=== PATIENT | female | born 1995 | race Caucasian/White ===

== ENCOUNTER 2017-05-16 07:52 | Outpatient (CLI) | payer OTHER ==
[~2017-05-16] VITALS: Ht 157.5 cm; Wt 57.9 kg
[2017-05-16 08:17] VITALS: BP 109/67; PULSE 81; Ht 157.5 cm; Wt 57.9 kg
[2017-05-16] MEDS ORDERED: PRENAT PO (08:20)
[2017-05-16 09:01] LABS: BASOPHILS % 0.1 % (0.0-2.0); EOSINOPHILS # 0.1 10^3/ul (0.0-0.5); EOSINOPHILS % 0.9 % (0.0-7.0); HEMATOCRIT 32.5 % (37.0-47.0); HEMOGLOBIN 10.5 g/dl (12.0-16.0); LYMPHOCYTES # 1.6 10^3/ul (0.8-2.9); LYMPHOCYTES % 20.9 % (15.0-51.0); MEAN CORPUSCULAR HEMOGLOBIN 27.6 pg (29.0-33.0); MEAN CORPUSCULAR HGB CONC 32.3 g/dl (32.0-37.0); MEAN CORPUSCULAR VOLUME 85.3 fl (82.0-101.0); MEAN PLATELET VOLUME 9.8 fl (7.4-10.4); MONOCYTE # 0.6 10^3/ul (0.3-0.9); MONOCYTES % 8.4 % (0.0-11.0); NEUTROPHIL # 5.3 10^3/ul (1.6-7.5); NEUTROPHILS % 68.8 % (39.0-77.0); PLATELET COUNT 179 10^3/UL (140-415); RED BLOOD COUNT 3.81 10^6/ul (4.20-5.40); RED CELL DISTRIBUTION WIDTH 13.9 % (11.5-14.5); WHITE BLOOD COUNT 7.7 10^3/ul (4.8-10.8)
--- NOTE | 2017-05-16 09:03 | RADRPT ---
PROCEDURE: Biophysical profile CLINICAL INDICATION: distress. Back pain. TECHNIQUE: Color and gibson-scale ultrasound images of an intrauterine gestation were obtained. COMPARISON: None FINDINGS: A single live intrauterine gestation is identified in cephalic position with an estimated hear t rate of 146 beats per minute. The placenta is located laterally to the left and has a grade up to . The cervix is obscured by head shadows. No evidence of abruption identified. ADDISON is 12.4 cm. movement 2/2. tone 2/2. breathing movement 2/2. Qualitative AFV 2/2 Total biophysical profile 04/02 IMPRESSION: 04/02 biophysical profile. RPTAT: AA .Hossein Mckeon MD, Date Time Electronically viewed and signed by .Hossein Mckeon MD, on 05/16/2017 09:03 .P/
[2017-05-16 09:15] LABS: ALBUMIN 3.2 g/dl (3.3-4.9); ALBUMIN/GLOBULIN RATIO 1.18; BILIRUBIN,INDIRECT 0.1 mg/dl (0-1.1); BILIRUBIN,TOTAL 0.1 mg/dl (0.2-1.3); CALCIUM 8.8 mg/dl (8.4-10.2); CREATININE 0.36 mg/dl (0.44-1.00); POTASSIUM 3.6 mmol/L (3.5-5.1); TOTAL PROTEIN 5.9 g/dl (6.1-8.1)
[2017-05-16 09:41] LABS: ADD UMIC NO; UR ASCORBIC ACID NEGATIVE (NEGATIVE); UR BILIRUBIN (Dip) NEGATIVE (NEGATIVE); UR BLOOD (Dip) NEGATIVE (NEGATIVE); UR CLARITY CLEAR (CLEAR); UR COLOR YELLOW (YELLOW); UR GLUCOSE (Dip) NEGATIVE (NEGATIVE); UR KETONES (Dip) NEGATIVE (NEGATIVE); UR LEUKOCYTE ESTERASE (Dip) NEGATIVE Leu/ul (NEGATIVE); UR NITRITE (Dip) NEGATIVE (NEGATIVE); UR SPECIFIC GRAVITY (Dip) 1.009 (1.003-1.030); UR TOTAL PROTEIN (Dip) NEGATIVE (NEGATIVE); UR UROBILINOGEN (Dip) NEGATIVE (NEGATIVE)
--- NOTE | 2017-05-16 10:35 | TRIAGE ---
OB Triage Datetime Report Generated by CPN: 05/16/2017 10:34 Datetime: 05/16/2017 10:13 Stage of : OB Triage Datetime: 05/16/2017 10:05 Labor Evaluation Frequency: 0 Monitor Mode: External Resting Tone [place]: Relaxed Heart Rate FHR Baseline Rate: 135 Monitor Mode: External US Variability: Moderate 6-25 bpm Decelerations: None Pain Assessment Pain Scale: 0 Pain Presence: None/Denies Pain Type: N/A Pain Goal: 3 Pain Relief Measures: Comfort Measures Pain Assessment Comments: states no longer has pain Datetime: 05/16/2017 09:03 Labor Evaluation Frequency: X1 Monitor Mode: External Duration (sec)2399: 50 Pattern: Normal: <= 5 Contractions in 10 Minutes Resting Tone [place]: Relaxed Heart Rate FHR Baseline Rate: 135 Monitor Mode: External US Variability: Moderate 6-25 bpm Accelerations: 10X10 Decelerations: None Category: Category I Pain Assessment Pain Scale: 6 Pain Presence: Constant Pain Type: Cramping Pain Location: Abdomen Pain Goal: 3 Pain Relief Measures: Comfort Measures Datetime: 05/16/2017 08:22 Stage of : OB Triage Datetime: 05/16/2017 08:01 Stage of : OB Triage Assessment Type: Triage Maternal Assessment Level of Consciousness: Fully Conscious DTR's/Clonus: DTRs 2+; No Clonus Headache: Denies Blurred Vision: No Respiratory Effort: Unlabored; Regular Rhythm; Equal Expansion Breath Sounds, Left: Clear and Equal Breath Sounds, Right: Clear and Equal Nausea/Vomiting: Denies RUQ Epigastric Pain: Denies Facial Edema: None Temperature Route: Axillary Fall Risk Assessment History of Falling: (0) No Secondary Diagnosis: (0) No Ambulatory Aid: (0) Bedrest/Nurse Assist IV Therapy: (0) No Gait: (0) Normal/Bedrest/Immobile Mental Status: (0) Oriented to Own Ability Fall Score: 0 Fall Risk Score Definition: No Risk: No action required Labor Evaluation Frequency: 0 Monitor Mode: External Resting Tone [place]: Relaxed Heart Rate FHR Baseline Rate: 135 Monitor Mode: External US Variability: Moderate 6-25 bpm Decelerations: None Pain Assessment Pain Scale: 7 Pain Presence: Constant Pain Type: Cramping; Ache Pain Location: Abdomen Pain Goal: 3 Pain Relief Measures: Comfort Measures Datetime: 05/16/2017 08:00 EGA: 34.5 Datetime: 05/16/2017 07:58 Time of Arrival: 05/16/2017 07:45 Arrived By: Ambulatory Arrived From: Home Chief Complaint: C/O CONSTANT ABDOMINAL PAIN THAT STARTED YESTERDAY. DENIES BLEEDING OR LEAKING O F FLUID Movement: Present Contractions: Denies/Absent Rupture of Membranes: Denies Vaginal Bleeding: None Vaginal Discharge: Denies Recent Sexual Intercouse: Denies Abdominal Trauma: Not Applicable Patient Complaints: Back Pain; Other Time Provider Notified: 05/16/2017 08:22 Provider Notified: OSIRIS Initial Plan: MONITOR, U/A, cbc, cmp,bpp
--- NOTE | 2017-05-16 18:34 | QN ---
Documentation Comment iup 34 weeks vss exam wnl a/p iup 34 weeks false labor [facility] CLAUDIA NEWELL MD May 16, 2017 18:34
== END 2017-05-16 10:21 | disposition home or self-care (01) ==
LOC: OBT 07:52 → L-D 07:52 → OBT 10:21
PROVIDERS: ATTEND Obstetrics & Gynecology
DX: O47.03 False labor before 37 completed weeks of gestation, third trimester (principal); Z3A.34 34 weeks gestation of pregnancy
CPT/HCPCS: 76818; 80053; 81003; 85025; G0463

== ENCOUNTER 2017-06-12 14:42 | Inpatient (IN) | payer OTHER ==
[~2017-06-12] VITALS: Ht 152.4 cm; Wt 57.6 kg
[~2017-06-12 14:42] MED LIST: PRENAT PO
[2017-06-12 14:58] VITALS: BP 125/82; PULSE 91; RESP 18; Ht 152.4 cm; Wt 57.6 kg
--- NOTE | 2017-06-12 15:15 | TRIAGE ---
OB Triage Datetime Report Generated by CPN: 06/12/2017 15:14 Datetime: 06/12/2017 15:03 Vaginal Exam Dilatation (cms): 7.0 Effacement (%): 90 Station: -2 Exam By: khemani Membrane Status: Bulging Vaginal Bleeding: None Cervix, Consistency: Soft Cervix, Position: Anterior Presentation 'A': Cephalic Datetime: 06/12/2017 14:56 Heart Rate Monitor Mode: External US Datetime: 06/12/2017 14:54 Labor Evaluation Monitor Mode: External Heart Rate Monitor Mode: External US Datetime: 06/12/2017 14:48 Assessment Type: Triage Maternal Assessment Level of Consciousness: Fully Conscious DTR's/Clonus: DTRs 2+; No Clonus Headache: Denies Blurred Vision: No Respiratory Effort: Unlabored; Regular Rhythm; Equal Expansion Breath Sounds, Left: Clear and Equal Breath Sounds, Right: Clear and Equal Nausea/Vomiting: Denies RUQ Epigastric Pain: Denies Lower Extremities Edema: None Degree: None Upper Extremities Edema: None Degree: None Facial Edema: None Fall Risk Assessment History of Falling: (0) No Secondary Diagnosis: (0) No Ambulatory Aid: (0) Bedrest/Nurse Assist IV Therapy: (0) No Gait: (0) Normal/Bedrest/Immobile Mental Status: (0) Oriented to Own Ability Fall Score: 0 Fall Risk Score Definition: No Risk: No action required Datetime: 06/12/2017 14:46 Time of Arrival: 06/12/2017 14:38 EGA: 38.4 Arrived By: Ambulatory Arrived From: Home Movement: Present Contractions: Irregular Time Contractions Began: 06/12/2017 02:00 Rupture of Membranes: Denies Vaginal Bleeding: None Vaginal Discharge: Present Recent Sexual Intercouse: Denies Abdominal Trauma: Not Applicable Patient Complaints: Contractions; Cramping; Back Pain Time Provider Notified: 06/12/2017 15:10 Provider Notified: AIDAN Initial Plan: efm SVE Datetime: 05/16/2017 08:01 Fall Score: 0 Fall Risk Score Definition: No Risk: No action required Datetime: 05/16/2017 08:00 EGA: 34.5
[2017-06-12] MEDS ORDERED: LACTATED RINGER'S 1,000 ML IV SCH (15:22)
[2017-06-12] MEDS ORDERED: METHYLERGONOVINE 0.2 MG INJ IM PRN (15:30)
[2017-06-12] MEDS ORDERED: IBUPROFEN 600 MG TAB PO PRN (15:30)
[2017-06-12] MEDS ORDERED: OXYTOCIN 30 UNITS/LR 500 ML IV PRN (15:30)
[2017-06-12] MEDS ORDERED: LACTATED RINGER'S 1,000 ML IV PRN (15:30)
[2017-06-12] MEDS ORDERED: MISOPROSTOL 200 MCG TAB PR PRN (15:30)
[2017-06-12] MEDS ORDERED: LIDOCAINE 1% (MPF) 30 ML INJ INJ PRN (15:30)
[2017-06-12] MEDS ORDERED: MINERAL OIL LIGHT 10 ML VIAL TOP PRN (15:30)
[2017-06-12] MEDS ORDERED: OXYTOCIN 30 UNITS/LR 500 ML IV SCH (15:30)
[2017-06-12] MEDS ORDERED: BUTORPHANOL 2 MG INJ IV PRN (15:30)
[2017-06-12] MEDS ORDERED: CARBOPROST 250 MCG INJ IM PRN (15:30)
[2017-06-12 16:02] LABS: BASOPHILS % 0.2 % (0.0-2.0); HEMATOCRIT 39.7 % (37.0-47.0); HEMOGLOBIN 12.5 g/dl (12.0-16.0); LYMPHOCYTES # 1.1 10^3/ul (0.8-2.9); LYMPHOCYTES % 9.1 % (15.0-51.0); MEAN CORPUSCULAR HEMOGLOBIN 26.9 pg (29.0-33.0); MEAN CORPUSCULAR HGB CONC 31.5 g/dl (32.0-37.0); MEAN CORPUSCULAR VOLUME 85.4 fl (82.0-101.0); MEAN PLATELET VOLUME 10.4 fl (7.4-10.4); MONOCYTE # 0.5 10^3/ul (0.3-0.9); MONOCYTES % 4.2 % (0.0-11.0); NEUTROPHIL # 10.3 10^3/ul (1.6-7.5); NEUTROPHILS % 85.6 % (39.0-77.0); PLATELET COUNT 191 10^3/UL (140-415); RED BLOOD COUNT 4.65 10^6/ul (4.20-5.40); RED CELL DISTRIBUTION WIDTH 14.6 % (11.5-14.5)
[2017-06-12 16:20] LABS: INR 0.95; PROTIME 12.7 Sec (12.2-14.2)
[2017-06-12] MEDS: OXYTOCIN 30 UNITS/LR 500 ML IV SCH ×3 (17:02→21:28)
--- NOTE | 2017-06-12 18:48 | LDN ---
Date/Time of Note Date/Time of Note DATE: 06/12/17 TIME: 18:40 Delivery Summary Normal spontaneous vaginal delivery of a baby boy from OA position shoulders delivered without any difficulty rest of the baby's body followed cord clamped after stopped pulsation placenta spontaneous expulsion inspected complete blood loss 250 cc Weeks of Gestation 38 weeks 4 days Placenta Delivered: Spontaneously Meconium: none Episiotomy: No Laceration repair: First-degree perineal laceration, small bilateral pleural urethra laceration repaired with 4-0 chromic Anesthesia type: Local Sponge & Needle done & correct: Yes All needle counts correct: Yes Any foreign bodies felt in the: No Problems: Delivery Information Sex Infant Sex: male Apgars 1 Minute: 9 5 Minute: 9 Suctioning Nose & mouth suctioned at aris: Yes Delee suction performed: No Umbilical Cord Umbilical cord with: 3 Vessels Cord presentations: no nuchal cord Cord Blood was obtained: Yes SLADE BERMUDEZ MD Jun 12, 2017 18:48
[2017-06-12 18:54] VITALS: BP 115/70; PULSE 81; RESP 18
--- NOTE | 2017-06-12 18:57 | HP ---
Date/Time of Note Date/Time of Note DATE: 06/12/17 TIME: 18:49 OB - History Hx of Present Free Text/Dictation 22 years old female admitted to [facility] in active labor pelvic examination on admission cervix 7-8 cm dilated 100% effaced vertex at -1-0 station contraction every 3-5 minutes heart tracing category 1 Chief Complaint: Labor contraction Estimated Due Date: Jun 14, 2017 : 1 Para: 0 Care: Good Care Ultrasounds: Normal mid trimester US Obstetrical Complications: None Medical Complications: None Past Family/Social History * Past Medical, Surgical, Family and Obstetric Histories reviewed from chart. Rubella: immune RPR/VDRL: Negative GBS Status: Negative HBsAG: Negative OB Admission Exam Vital Signs Vital Signs Vital Signs Date Time Temp Pulse Resp B/P Pulse Ox O2 Delivery O2 Flow Rate FiO2 06/12/17 14:58 97.9 91 18 125/82 97 Room Air Physical Exam HEENT: WNL Heart: Rhythm Normal Lungs: Clear, Equal Abdomen: WNL Extremities: Normal Reflexes: Normal Cervical Dilatation: 7cm Effacement: 100% Station: -1 Membranes: Intact Amniotic Fluid: Clear Heart Rate: 130's Accelerations: Accelerations Present Decelerations: No Decelerations Varibility: Moderate Contractions on Admission: < 5 Minutes Apart Intensity: Firm Last 72 hours Lab Results CBC & BMP 06/12/17 15:20 SLADE BERMUDEZ MD Jun 12, 2017 18:56
[2017-06-12 20:45] VITALS: BP 118/75; PULSE 82; RESP 18
[2017-06-12] MEDS ORDERED: DIBUCAINE 1% 30 GM OINT PR PRN (21:00)
[2017-06-12] MEDS ORDERED: BENZOCAINE 20% 56 ML SPRAY TOP PRN (21:00)
[2017-06-12] MEDS ORDERED: ONDANSETRON 4 MG INJ IV PRN (21:00)
[2017-06-12] MEDS ORDERED: WITCH HAZEL/GLYCERIN PAD PR PRN (21:00)
[2017-06-12] MEDS ORDERED: OXYCODONE/ASPIRIN (4.88/325) TAB PO PRN ×2 (21:00)
[2017-06-12] MEDS ORDERED: HYDROCODONE/APAP (5/325) TAB PO PRN ×2 (21:00)
[2017-06-12] MEDS ORDERED: LANOLIN 7 GM TUBE TOP PRN (21:00)
[2017-06-12] MEDS ORDERED: ACETAMINOPHEN 325 MG TAB PO PRN (21:00)
[2017-06-12 21:15] VITALS: BP 119/72; PULSE 84; RESP 18
[2017-06-12] MEDS: SENNA/DOCUSATE NA (8.6MG/50MG) TAB PO SCH (21:28)
[2017-06-13] MEDS: OXYTOCIN 30 UNITS/LR 500 ML IV SCH (00:48)
[2017-06-13] MEDS: IBUPROFEN 600 MG TAB PO SCH ×5 (01:28→23:32)
[2017-06-13 04:00] VITALS: BP 103/59; PULSE 63; RESP 18
[2017-06-13 07:30] VITALS: BP 108/64; PULSE 62; RESP 18
[2017-06-13] MEDS: SENNA/DOCUSATE NA (8.6MG/50MG) TAB PO SCH ×2 (08:00→21:54)
[2017-06-13 11:04] LABS: BASOPHILS % 0.1 % (0.0-2.0); EOSINOPHILS % 0.3 % (0.0-7.0); HEMATOCRIT 35.8 % (37.0-47.0); HEMOGLOBIN 11.3 g/dl (12.0-16.0); LYMPHOCYTES # 1.8 10^3/ul (0.8-2.9); LYMPHOCYTES % 16.1 % (15.0-51.0); MEAN CORPUSCULAR HEMOGLOBIN 27.1 pg (29.0-33.0); MEAN CORPUSCULAR HGB CONC 31.6 g/dl (32.0-37.0); MEAN CORPUSCULAR VOLUME 85.9 fl (82.0-101.0); MEAN PLATELET VOLUME 10.2 fl (7.4-10.4); MONOCYTE # 0.5 10^3/ul (0.3-0.9); MONOCYTES % 4.7 % (0.0-11.0); NEUTROPHIL # 8.8 10^3/ul (1.6-7.5); NEUTROPHILS % 77.8 % (39.0-77.0); PLATELET COUNT 160 10^3/UL (140-415); RED BLOOD COUNT 4.17 10^6/ul (4.20-5.40); RED CELL DISTRIBUTION WIDTH 14.6 % (11.5-14.5); WHITE BLOOD COUNT 11.3 10^3/ul (4.8-10.8)
[2017-06-13 16:00] VITALS: BP 106/60; PULSE 77; RESP 18
--- NOTE | 2017-06-13 17:04 | PN ---
Date/Time of Note Date/Time of Note DATE: 06/13/17 TIME: 17:02 OB Subjective Subjective Subjective June 13, 2017 Post day 1 Patient is doing well, Ambulatory She is afebrile Abdomen is soft , Fundus is firm Moderate amount of lochia Breasts are soft, Nipples are intact No calf tenderness. Perineum is healing well. Laboratory Tests Test 06/13/17 10:23 White Blood Count 11.310^3/ul Red Blood Count 4.1710^6/ul Hemoglobin 11.3g/dl Hematocrit 35.8% Mean Corpuscular Volume 85.9fl Mean Corpuscular Hemoglobin 27.1pg Mean Corpuscular Hemoglobin Concent 31.6g/dl Red Cell Distribution Width 14.6% Platelet Count 43271^3/UL Mean Platelet Volume 10.2fl Neutrophils % 77.8% Lymphocytes % 16.1% Monocytes % 4.7% Eosinophils % 0.3% Basophils % 0.1% Nucleated Red Blood Cells % 0.0/100WBC Neutrophils # 8.810^3/ul Lymphocytes # 1.810^3/ul Monocytes # 0.510^3/ul Eosinophils # 0.010^3/ul Basophils # 0.010^3/ul Nucleated Red Blood Cells # 0.010^3/ul Current Medications Medications (Trade) Dose Ordered Sig/[place] Route PRN Reason Start Time Stop Time Status Last Admin Dose Admin Lactated Ringer's (Lr) 1,000 ml @ 125 mls/hr Q8H IV 06/12/17 15:22 06/12/17 21:00 DC 06/12/17 15:25 Butorphanol Tartrate (Stadol) 2 mg Q2H PRN IV PAIN 06/12/17 15:30 06/12/17 21:00 DC Lidocaine 30 ml 30 ml ONCE PRN INJ EPISIOTOMY/TEARING 06/12/17 15:30 06/12/17 21:00 DC 06/12/17 17:02 Oxytocin/Lactated Ringer's 500 ml @ 125 mls/hr ONCE -MAY REPEAT X1 IV 06/12/17 15:30 06/12/17 21:00 DC 06/12/17 17:30 Oxytocin/Lactated Ringer's 500 ml @ 125 mls/hr ONCE IV 06/12/17 15:30 06/12/17 21:00 DC Ibuprofen 600 mg 600 mg ONCE PRN PO Mild Pain (Pain Score 1-3) 06/12/17 15:30 06/12/17 21:00 DC 06/12/17 17:26 Lactated Ringer's 1,000 ml @ 2,000 mls/hr Q30M PRN IV PRE-EPIDURAL BOLUS 06/12/17 15:30 06/12/17 21:00 DC Oxytocin/Lactated Ringer's 500 ml @ 0 mls/hr ONCE PRN IV For Hemorrhage Management 06/12/17 15:30 06/12/17 21:00 DC Methylergonovine Maleate (Methergine) 0.2 mg ONCE PRN IM VAGINAL BLEEDING 06/12/17 15:30 06/12/17 21:00 DC Carboprost Tromethamine (Hemabate) 250 mcg ONCE PRN IM VAGINAL BLEEDING 06/12/17 15:30 06/12/17 21:00 DC Misoprostol (Cytotec) 1,000 mcg ONCE PRN ME VAGINAL BLEEDING 06/12/17 15:30 06/12/17 21:00 DC Mineral Oil 30 ml 30 ml ONCE PRN TOP FOR DELIVERY 06/12/17 15:30 06/12/17 21:00 DC 06/12/17 17:02 Oxytocin/Lactated Ringer's 500 ml @ 125 mls/hr Q4H IV 06/12/17 20:48 06/13/17 04:47 DC 06/12/17 21:28 Ibuprofen (Motrin) 600 mg Q6 PO 06/13/17 00:00 06/13/17 11:56 Acetaminophen (Tylenol Tab) 650 mg Q4H PRN PO PAIN LEVEL 1-5 06/12/17 21:00 Acetaminophen/ Hydrocodone Bitart (Canvas (5/325)) 1 tab Q4H PRN PO PAIN LEVEL 1-5 06/12/17 21:00 Acetaminophen/ Hydrocodone Bitart (Canvas (5/325)) 2 tab Q4H PRN PO PAIN LEVEL 6-10 06/12/17 21:00 Oxycodone/Aspirin (Percodan) 1 tab Q3H PRN PO PAIN LEVEL 1-5 06/12/17 21:00 06/13/17 08:00 Oxycodone/Aspirin (Percodan) 2 tab Q3H PRN PO PAIN LEVEL 6-10 06/12/17 21:00 Ondansetron HCl (Zofran Inj) 4 mg Q6H PRN IV NAUSEA AND/OR VOMITING 06/12/17 21:00 Senna/Docusate Sodium (Senokot-S) 1 tab BID PO 06/12/17 21:00 06/13/17 08:00 Witch Ernestina/ Glycerin (Tucks Pads) 1 pad BEDSIDE MEDICATION PRN ME HEMORRHOID/EPISIOTMY PAIN 06/12/17 21:00 06/12/17 21:28 Benzocaine (Dermoplast [place]) 1 spray BEDSIDE MEDICATION PRN TOP HEMORRHOID/EPISIOTMY PAIN 06/12/17 21:00 06/12/17 21:29 Dibucaine (Nupercainal) 1 applic BEDSIDE MEDICATION PRN ME HEMORRHOID/EPISIOTMY PAIN 06/12/17 21:00 Lanolin (Bji-C-Wxqdam) 1 applic BEDSIDE MEDICATION PRN TOP BEDSIDE FOR DANIEL TO NIPPLES 06/12/17 21:00 06/12/17 21:29 Measles/Mumps/ Rubella Vaccine Live (Mmr Ii Vaccine) 0.5 ml ONCE ONCE SC* 06/14/17 09:00 06/14/17 09:01 Breast feeding the new born. LOTTIE LUGO MD Jun 13, 2017 17:04
[2017-06-13 19:30] VITALS: BP 116/75; PULSE 69; RESP 17
[2017-06-14 04:00] VITALS: BP 108/77; PULSE 64; RESP 18
[2017-06-14] MEDS: IBUPROFEN 600 MG TAB PO SCH ×2 (05:21→12:13)
[2017-06-14 08:30] VITALS: BP 107/71; PULSE 62; RESP 16
[2017-06-14] MEDS ORDERED: MEASLES,MUMPS,RUBELLA VACCINE INJ SC* ONE (09:00)
[2017-06-14] MEDS: SENNA/DOCUSATE NA (8.6MG/50MG) TAB PO SCH (09:15)
--- NOTE | 2017-06-14 09:34 | PD.PPDC ---
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
--- NOTE | 2017-06-14 09:37 | DS ---
Date/Time of Note Date/Time of Note DATE: 06/14/17 TIME: 09:34 Discharge Summary Admission/Discharge Info Admit Date/Time Jun 12, 2017 at 15:05 Discharge Date/Time June 14, 2017 at 9 30 Discharge Diagnosis Post normal vaginal delivery day2 Patient Condition: Good Procedures Normal vaginal delivery Hx of Present Illness Term in labor Hospital Course Satisfactory uneventful Home Meds Discontinued Reported Medications Multivit/Min/Fol Ac/Iron/Pren* ( S*) 1 Tab Tab, 1 TAB PO DAILY, TAB 05/16/17 Follow-up Plan instruction given recommended to make appointment with [facility] [place] for check Primary Care Provider [facility] Time spent on discharge: < 30 minutes Pending Labs Laboratory Tests Test 06/13/17 10:23 06/14/17 07:08 White Blood Count 11.310^3/ul (4.8-10.8) Red Blood Count 4.1710^6/ul (4.20-5.40) Hemoglobin 11.3g/dl (12.0-16.0) Hematocrit 35.8% (37.0-47.0) Mean Corpuscular Volume 85.9fl (82.0-101.0) Mean Corpuscular Hemoglobin 27.1pg (29.0-33.0) Mean Corpuscular Hemoglobin Concent 31.6g/dl (32.0-37.0) Red Cell Distribution Width 14.6% (11.5-14.5) Platelet Count 84248^3/UL (140-415) Mean Platelet Volume 10.2fl (7.4-10.4) Neutrophils % 77.8% (39.0-77.0) Lymphocytes % 16.1% (15.0-51.0) Monocytes % 4.7% (0.0-11.0) Eosinophils % 0.3% (0.0-7.0) Basophils % 0.1% (0.0-2.0) Nucleated Red Blood Cells % 0.0/100WBC (0.0-0.0) Neutrophils # 8.810^3/ul (1.6-7.5) Lymphocytes # 1.810^3/ul (0.8-2.9) Monocytes # 0.510^3/ul (0.3-0.9) Eosinophils # 0.010^3/ul (0.0-0.5) Basophils # 0.010^3/ul (0.0-0.1) Nucleated Red Blood Cells # 0.010^3/ul (0.0-0.0) Lab Scanned Report REFERENCE [id number] SLADE BERMUDEZ MD Jun 14, 2017 09:37
== END 2017-06-14 14:57 | disposition home or self-care (01) | DRG 775 ==
LOC: L-D 14:42 → OBT 14:42 → L-D 15:05 → PP1 20:49
PROVIDERS: ADMIT Obstetrics & Gynecology; ATTEND Obstetrics & Gynecology
PROC: 10E0XZZ Delivery of Products of Conception, External Approach (ICD-10-PCS; principal; 2017-06-12)
PROC: 0HQ9XZZ Repair Perineum Skin, External Approach (ICD-10-PCS; 2017-06-12)
DX: O70.0 First degree perineal laceration during delivery (principal); Z37.0 Single live birth; Z3A.38 38 weeks gestation of pregnancy
CPT/HCPCS: 85025; 85610; 85730; 86592; 86900; 86901; 87340; G0463; J2590; J7120

== ENCOUNTER 2017-08-08 00:11 | Inpatient (IN) | payer OTHER ==
[2017-08-08] VITALS (8 sets, daily range): BP systolic 91–109; BP diastolic 48–61; PULSE 59–89; RESP 16–18; Ht 157.5 cm; Wt 48.1 kg
[~2017-08-08] VITALS: Ht 157.5 cm; Wt 48.1 kg
[2017-08-08] MEDS ORDERED: SOD CHLORIDE 0.9% 1,000 ML IV SCH (02:30)
[2017-08-08] MEDS ORDERED: NACL 0.9% 3 ML SYG IV SCH (04:00)
[2017-08-08] MEDS ORDERED: BISACODYL (EC) 5 MG TAB PO PRN (04:00)
[2017-08-08] MEDS ORDERED: DOCUSATE SODIUM 100 MG CAP PO PRN (04:00)
[2017-08-08] MEDS ORDERED: ONDANSETRON 4 MG INJ IV PRN (04:00)
[2017-08-08] MEDS: PIPER-TAZO 3.375 GM IV (PMX) 50 ML IVPB SCH ×5 (04:37→23:10)
[2017-08-08] MEDS: SOD CHLORIDE 0.9% 1,000 ML IV SCH ×2 (04:37→14:23)
--- NOTE | 2017-08-08 06:13 | HP ---
Date/Time of Note Date/Time of Note DATE: 08/08/17 TIME: 05:26 Assessment/Plan VTE Prophylaxis VTE Prophylaxis Intervention: SCD's Lines/Catheters IV [facility]ter [facility]from [facility] Saline Lock Urinary Cath still in place: No Assessment/Plan Chief Complaint/Hosp Course This is a 22 year female who was admitted recently to the telemetry floor however she will be downgraded to MedSurg: #1 Choledocholithiasis: Imaging and lab work from the transferring facility showed: Ultrasound showed distended gallbladder 10.3 mm with gallbladder sludge. Her T bili was elevated at 3.2 along with transaminitis. At the current time will order a repeat CBC and CMP. Will keep the patient n.p.o. I did discuss the case with the surgeon Dr. Fish as well as GI Dr. Wolf. At the current time we will proceed with ERCP based on the ultrasound findings. After that she likely will undergo cholecystectomy. The current time we will keep her on prophylactic antibiotics. Monitor for any fevers. As she does appear clinically stable at this time I will downgrade her to MedSurg. Morphine for pain control. Zofran for nausea #2 congenital heart murmur: Patient had congenital heart murmur surgery repair. But the current time I do not hear any overt murmurs. Currently stable. Continue to monitor. #3 DVT GI prophylaxis: SCDs, no GI prophylaxis indicated Patient was educated on the risks and benefits of the surgical procedures. Patient understands the risks and benefits and she is agreeable to proceed forward with the procedures. Further treatment strategy will be implemented as per the clinical course Problems: HPI/ROS Admit Date/Time Admit Date/Time Aug 08, 2017 at 01:00 Hx of Present Illness cc; Abdominal pain This is a 22 year old female who presented to [facility] with abdominal pain x 4 days. Patient described it is a pain, and was not able to give it an exact description. 10/10 in intensity. Reporting nausea and vomitting. Denies fevers. States she was diagnosed with gallstones in the past. She recently delivered via vaginal delivery. She is currently breast-feeding. Allergies: NKDA Medications: None ROS Const: As per HPI Eyes : No pain discharge or redness or change in visual acuity ENT: No pain, sore throat, congestion, congestion, dysphagia or discharge Respiratory: No shortness of breath, cough, sputum, wheezing, or pleuritic pain Cardiovascular: No chest pain, palpitation, PND, or edema GI : As per HPI Genitourinary: No dysuria, hematuria, flank pain , discharge or CVA tenderness Musculoskeletal: No joint pain, back pain, neck pain, restricted range of motion in neck or joints Skin: No rash, bruising or hives Neuro: No headache, dizziness, syncope, seizure, focal weakness Endocrine: No polyuria, polydipsia, temperature intolerance Psych: No hallucination, depression, anxiety or suicidal ideation PMH/Family/Social Past Medical History Congenital heart murmur status post surgery Past Surgical History Congenital heart murmur surgery repair Family History Significant Family History: no pertinent family hx Social History Alcohol Use: none Smoking Status: Never smoker Drug Use: none Exam/Review of Systems Vital Signs Vitals Vital Signs Date Time Temp Pulse Resp B/P Pulse Ox O2 Delivery O2 Flow Rate FiO2 08/08/17 04:00 63 Exam Exam General: She is currently lying comfortably in bed in no acute distress HEENT: Atraumatic, normocephalic. The pupils are equal, round and reactive. Extraocular motor are intact Neck: Supple with full range of motion. No rigidity or meningismus Chest: Nontender Lungs: Clear to auscultation bilaterally no crackles rales or wheezing Heart: Normal S1-S2, Regular rhythm and rate. No murmur, S3, or S4 Abdomen: Soft, currently she is nontender to palpation at the right upper quadrant, normal bowel sounds Extremities: Normal to inspection, no edema no cyanosis Neurologic: Normal mental status, speech normal, cranial nerves II through XII are intact, motor and sensory are intact, no focal weakness Additional Comments Pertinent laboratory findings from transferring facility please see full report in the medical record: Ultrasound of the gallbladder: Showed distended common bile at 10.3 mm with gallbladder sludge. Alk phos 209 AST and ALT: 126 and 184 respectively Medications Medications Current Medications Sodium Chloride (NS) 1,000 ml @ 100 mls/hr Q10H IV Last administered on t 04:37; Admin Dose 100 MLS/HR; Start 08/08/17 at 03:51 Ondansetron HCl (Zofran Inj) 4 mg Q6H PRN IV NAUSEA AND/OR VOMITING; Start at 04:00 Acetaminophen (Tylenol Tab) 650 mg Q6H PRN PO PAIN LEVEL 1-3 OR FEVER; Start 08/08/17 at 04:00 Morphine Sulfate (morphine) 2 mg Q4H PRN IV PAIN LEVEL 7-10; Start 08/08/17 at 04:00 Docusate Sodium (Colace) 100 mg Q12H PRN PO CONSTIPATION; Start 08/08/17 at 04 :00 Bisacodyl 5 mg 5 mg DAILY PRN PO CONSTIPATION; Start 08/08/17 at 04:00 Piperacillin Sod/ Tazobactam Sod (Zosyn 3.375gm/ 50 ml (Pmx)) 50 ml @ 100 mls/ hr Q6 IVPB Last administered on 08/08/17t 04:37; Admin Dose 100 MLS/HR; Start 08/08/17 at 04:00 ABIGAIL GO Aug 08, 2017 06:13
[2017-08-08 06:50] LABS: BASOPHILS % 0.4 % (0.0-2.0); EOSINOPHILS # 0.3 10^3/ul (0.0-0.5); EOSINOPHILS % 3.8 % (0.0-7.0); HEMATOCRIT 34.8 % (37.0-47.0); HEMOGLOBIN 11.4 g/dl (12.0-16.0); MEAN CORPUSCULAR HEMOGLOBIN 26.7 pg (29.0-33.0); MEAN CORPUSCULAR HGB CONC 32.8 g/dl (32.0-37.0); MEAN CORPUSCULAR VOLUME 81.5 fl (82.0-101.0); MEAN PLATELET VOLUME 9.6 fl (7.4-10.4); MONOCYTE # 0.7 10^3/ul (0.3-0.9); NEUTROPHIL # 3.3 10^3/ul (1.6-7.5); NEUTROPHILS % 45.7 % (39.0-77.0); PLATELET COUNT 209 10^3/UL (140-415); RED BLOOD COUNT 4.27 10^6/ul (4.20-5.40); RED CELL DISTRIBUTION WIDTH 13.1 % (11.5-14.5); WHITE BLOOD COUNT 7.2 10^3/ul (4.8-10.8)
--- NOTE | 2017-08-08 07:22 | CONS ---
Date/Time of Note Date/Time of Note DATE: 08/08/17 TIME: 07:15 Assessment/Plan Assessment/Plan Chief Complaint/Hosp Course abdominal pain Problems: (1) Choledocholithiasis Status: Acute Comment: Requires ERCP by GI for CBD stone extraction If after ERCP pt with no pancreatitis, will carry out lap choly prior to discharge Risks and benefits, including bleeding, infection, CBD injury, damage to surrounding structures explained. All questions answered with RN interpreting and present. Pt agreed to proceed with surgery. Consultation Date/Type/Reason Admit Date/Time Aug 08, 2017 at 01:00 Date of Consultation: Aug 08, 2017 Type of Consultation: General surgery Reason for Consultation gallstones Referring Provider: ABIGAIL GO Hx of Present Illness 22 yo female presents with two days of worsening RUQ and epigastric pain. Pt was diagnosed with gallstones when she was . Since having delivered she has noticed the pain getting worse. Workup in the ER at [facility] reveals CBD of 10.3 mm and TBili of 3.2 concerning for CBD stone. Pt transferred to [facility] for tx. Constitutional: poor po Eyes: no complaints ENT: no complaints Respiratory: no complaints Cardiovascular: no complaints Gastrointestinal: decreased appetite, nausea, pain, passing stool, vomiting, No blood, No constipation, No diarrhea, No flatus, No no complaints, No other Genitourinary: no complaints Musculoskeletal: no complaints Skin: no complaints Neurologic: no complaints Endocrine: no complaints Lymphatic: no complaints Psychological: nl mood/affect, no complaints Immunologic: no complaints Past Medical History Medical History: no pertinent history Past Surgical History Past Surgical Hx: no surgical history Family History Significant Family History: no pertinent family hx Social History Alcohol Use: none Smoking Status: Never smoker Drug Use: none Exam/Review of Systems Vital Signs Vitals Vital Signs Date Time Temp Pulse Resp B/P Pulse Ox O2 Delivery O2 Flow Rate FiO2 08/08/17 04:00 63 Exam Constitutional: alert, oriented, well developed Psych: nl mood/affect, no complaints Head: atraumatic, normocephalic Eyes: EOMI, nl conjunctiva ENMT: nl external ears & nose, nl lips & teeth, nl nasal mucosa & septum Neck: non-tender, supple Respiratory: clear to auscultation, normal air movement Cardiovascular: nl pulses, regular rate and rhythm Gastrointestinal: nl liver, spleen, soft, tender, No distended, No firm, No hepatomegaly, No mass, No rebound or guarding, No splenomegaly, No surgical scars Musculoskeletal: nl extremities to inspection Extremities: normal pulses Neurological: MEAT BONER AND SLICER II-XII intact, nl mental status, nl speech, nl strength Skin: nl turgor, rash or lesions Lymph: nl lymph nodes Results Result Diagram: 08/08/17 0606 Results 24 hrs Laboratory Tests Test 08/08/17 06:06 White Blood Count 7.2 # Red Blood Count 4.27 Hemoglobin 11.4 L Hematocrit 34.8 L Mean Corpuscular Volume 81.5 L Mean Corpuscular Hemoglobin 26.7 L Mean Corpuscular Hemoglobin Concent 32.8 Red Cell Distribution Width 13.1 Platelet Count 209 # Mean Platelet Volume 9.6 Neutrophils % 45.7 Lymphocytes % 41.0 Monocytes % 9.0 Eosinophils % 3.8 Basophils % 0.4 Nucleated Red Blood Cells % 0.0 Neutrophils # 3.3 Lymphocytes # 3.0 H Monocytes # 0.7 Eosinophils # 0.3 Basophils # 0.0 Nucleated Red Blood Cells # 0.0 Imaging Free Text/Dictation US: multiple gallstones; CBD 10.3 mm Medications Medications Current Medications Sodium Chloride (NS) 1,000 ml @ 100 mls/hr Q10H IV Last administered on 04:37; Admin Dose 100 MLS/HR; Start 08/08/17 at 03:51 Ondansetron HCl (Zofran Inj) 4 mg Q6H PRN IV NAUSEA AND/OR VOMITING; Start at 04:00 Acetaminophen (Tylenol Tab) 650 mg Q6H PRN PO PAIN LEVEL 1-3 OR FEVER; Start 08/08/17 at 04:00 Morphine Sulfate (morphine) 2 mg Q4H PRN IV PAIN LEVEL 7-10; Start 08/08/17 at 04:00 Docusate Sodium (Colace) 100 mg Q12H PRN PO CONSTIPATION; Start 08/08/17 at 04 :00 Bisacodyl 5 mg 5 mg DAILY PRN PO CONSTIPATION; Start 08/08/17 at 04:00 Piperacillin Sod/ Tazobactam Sod (Zosyn 3.375gm/ 50 ml (Pmx)) 50 ml @ 100 mls/ hr Q6 IVPB Last administered on 08/08/17 04:37; Admin Dose 100 MLS/HR; Start 08/08/17 at 04:00 CRIS HO Aug 08, 2017 07:22
[2017-08-08 08:04] LABS: INR 1.04; PARTIAL THROMBOPLASTIN TIME 37.6 Sec (25.0-35.0); PROTIME 13.7 Sec (11.9-14.9); PT RATIO 1.1
[2017-08-08 08:11] LABS: CHOL/HDL RATIO 2.2 RATIO
[2017-08-08 08:21] LABS: ALBUMIN/GLOBULIN RATIO 1.53; CALCIUM 8.9 mg/dl (8.4-10.2); CREATININE 0.62 mg/dl (0.44-1.00); MAGNESIUM 1.9 mg/dl (1.7-2.5); POTASSIUM 4.1 mmol/L (3.5-5.1); TOTAL PROTEIN 6.6 g/dl (6.1-8.1)
[2017-08-08 08:33] LABS: BILIRUBIN,INDIRECT 1.1 mg/dl (0-1.1); BILIRUBIN,TOTAL 1.1 mg/dl (0.2-1.3)
[2017-08-08 09:47] LABS: THYROID STIMULATING HORMONE 2.85 MIU/L (0.465-4.680)
[2017-08-08] MEDS ORDERED: DEXTROSE 50% 50 ML SYRINGE IV PRN ×2 (13:00)
[2017-08-08] MEDS ORDERED: GLUCOSE GEL 15 GRAM TUBE BUCCAL PRN (13:00)
[2017-08-08] MEDS ORDERED: GLUCOSE GEL 15 GRAM TUBE PO PRN ×2 (13:00)
[2017-08-08] MEDS ORDERED: INSULIN GLARGINE [LANtus] 3 ML PEN SC SCH (13:00)
[2017-08-08] MEDS ORDERED: GLUCAGON 1 MG INJ IM PRN (13:00)
--- NOTE | 2017-08-08 17:36 | PN ---
Date/Time of Note Date/Time of Note DATE: 08/08/17 TIME: 17:34 Assessment/Plan VTE Prophylaxis VTE Prophylaxis Intervention: LMWH Lines/Catheters IV Catheter Type (from Nrsg): Peripheral IV Urinary Cath still in place: No Assessment/Plan Chief Complaint/Hosp Course 22 yo female with cholecystitis - Plan for ERCP tomorrow - Contineu abx until resovled - NPO at midnight - Pain control, IVF Problems: Subjective 24 Hr Interval Summary Free Text/Dictation Patient feeling well Initial A1C showed 9% so dose lantus, however another one showed 5.6%, sugar slightly low at 76 Patient has no abdominal pain when seen Plan for ERCP tomorrow Exam/Review of Systems Vital Signs Vitals Vital Signs Date Time Temp Pulse Resp B/P Pulse Ox O2 Delivery O2 Flow Rate FiO2 08/08/17 14:00 98.5 72 18 96/51 98 Intake and Output 08/07/17 08/07/17 08/08/17 15:00 23:00 07:00 Intake Total 50 ml Balance 50 ml Exam Constitutional: alert, oriented, well developed Psych: nl mood/affect, no complaints Head: atraumatic, normocephalic Eyes: EOMI, PERRL, nl conjunctiva, nl lids, nl sclera ENMT: nl external ears & nose, nl lips & teeth, nl nasal mucosa & septum Neck: non-tender, supple Respiratory: clear to auscultation, normal air movement Cardiovascular: nl pulses, regular rate and rhythm Gastrointestinal: nl liver, spleen, non-tender, soft Musculoskeletal: nl extremities to inspection, nl gait and stance Extremities: normal pulses Neurological: JOINTER MACHINE II-XII intact, nl mental status, nl speech, nl strength Skin: nl turgor, No rash or lesions Lymph: nl lymph nodes Results Result Diagram: 08/08/17 0606 08/08/17 0606 Results 24 hrs Laboratory Tests Test 08/08/17 06:06 08/08/17 13:30 08/08/17 14:57 White Blood Count 7.2 # Red Blood Count 4.27 Hemoglobin 11.4 L Hematocrit 34.8 L Mean Corpuscular Volume 81.5 L Mean Corpuscular Hemoglobin 26.7 L Mean Corpuscular Hemoglobin Concent 32.8 Red Cell Distribution Width 13.1 Platelet Count 209 # Mean Platelet Volume 9.6 Neutrophils % 45.7 Lymphocytes % 41.0 Monocytes % 9.0 Eosinophils % 3.8 Basophils % 0.4 Nucleated Red Blood Cells % 0.0 Neutrophils # 3.3 Lymphocytes # 3.0 H Monocytes # 0.7 Eosinophils # 0.3 Basophils # 0.0 Nucleated Red Blood Cells # 0.0 Prothrombin Time 13.7 Prothrombin Time Ratio 1.1 INR International Normalized Ratio 1.04 Activated Partial Thromboplast Time 37.6 H Sodium Level 142 Potassium Level 4.1 Chloride Level 109 Carbon Dioxide Level 21 Anion Gap 16 Blood Urea Nitrogen 13 Creatinine 0.62 Glucose Level 72 Hemoglobin A1c 9.6 H 5.6 Calcium Level 8.9 Magnesium Level 1.9 Total Bilirubin 1.1 Direct Bilirubin 0.00 Indirect Bilirubin 1.1 Aspartate Amino Transf (AST/SGOT) 95 H Alanine Aminotransferase (ALT/SGPT) 170 H Alkaline Phosphatase 188 H Total Protein 6.6 Albumin 4.0 Globulin 2.60 Albumin/Globulin Ratio 1.53 Triglycerides Level 69 Cholesterol Level 133 LDL Cholesterol, Calculated 61 HDL Cholesterol 58 Cholesterol/HDL Ratio 2.2 Thyroid Stimulating Hormone (TSH) 2.850 Serum HCG, Qualitative NEGATIVE Bedside Glucose 73 Medications Medications Current Medications Ondansetron HCl (Zofran Inj) 4 mg Q6H PRN IV NAUSEA AND/OR VOMITING; Start at 04:00 Acetaminophen (Tylenol Tab) 650 mg Q6H PRN PO PAIN LEVEL 1-3 OR FEVER; Start 08/08/17 at 04:00 Morphine Sulfate 2 mg 2 mg Q4H PRN IV PAIN LEVEL 7-10; Start 08/08/17 at 04:00 Piperacillin Sod/ Tazobactam Sod (Zosyn 3.375gm/ 50 ml (Pmx)) 50 ml @ 100 mls/ hr Q6 IVPB Last administered on 08/08/17t 17:24; Admin Dose 100 MLS/HR; Start 08/08/17 at 04:00 Dextrose (D50w Syringe) 25 ml Q15M PRN IV DECREASED GLUCOSE; Start 08/08/17 at 13:00 MEAGAN JORDAN MD Aug 08, 2017 17:36
[2017-08-08] MEDS ORDERED: INSULIN ASPART [NOVOLOG] 3 ML PEN SC SCH ×2 (17:55)
[2017-08-08] MEDS: ACETAMINOPHEN 325 MG TAB PO PRN (19:18)
[2017-08-08] MEDS: morphine 2 MG INJ IV PRN (20:59)
[2017-08-09] MEDS ORDERED: ACCU-CHEK XX SCH (02:00)
[2017-08-09] MEDS: PIPER-TAZO 3.375 GM IV (PMX) 50 ML IVPB SCH ×4 (05:23→23:12)
[2017-08-09 06:51] LABS: INR 1.03; PROTIME 13.6 Sec (11.9-14.9); PT RATIO 1.1
[2017-08-09 06:52] LABS: PARTIAL THROMBOPLASTIN TIME 35.2 Sec (25.0-35.0)
[2017-08-09 07:28] VITALS: BP 97/49; RESP 18
[2017-08-09 09:22] LABS: ALBUMIN 3.4 g/dl (3.3-4.9); ALBUMIN/GLOBULIN RATIO 1.47; BILIRUBIN,INDIRECT 1.4 mg/dl (0-1.1); BILIRUBIN,TOTAL 1.4 mg/dl (0.2-1.3); CALCIUM 8.4 mg/dl (8.4-10.2); CREATININE 0.72 mg/dl (0.44-1.00); POTASSIUM 4.2 mmol/L (3.5-5.1); TOTAL PROTEIN 5.7 g/dl (6.1-8.1)
[2017-08-09 14:03] VITALS: BP 98/54; RESP 18
--- NOTE | 2017-08-09 14:50 | PN ---
Date/Time of Note Date/Time of Note DATE: 08/09/17 TIME: 14:49 Assessment/Plan VTE Prophylaxis VTE Prophylaxis Intervention: LMWH Lines/Catheters IV Catheter Type (from Nrs): Peripheral IV Urinary Cath still in place: No Assessment/Plan Chief Complaint/Hosp Course 22 yo female with cholecystitis - Plan for ERCP today - Continue abx until resolved - NPO for now, can eat following procedure - Pain control, IVF Problems: Subjective 24 Hr Interval Summary Free Text/Dictation Patient comfortable, stable Pending ERCP today Exam/Review of Systems Vital Signs Vitals Vital Signs Date Time Temp Pulse Resp B/P Pulse Ox O2 Delivery O2 Flow Rate FiO2 08/09/17 14:03 98.6 57 18 98/54 100 Intake and Output 08/08/17 08/08/17 08/09/17 15:00 23:00 07:00 Intake Total 100 ml 50 ml 340 ml Balance 100 ml 50 ml 340 ml Exam Constitutional: alert, oriented, well developed Psych: nl mood/affect, no complaints Head: atraumatic, normocephalic Eyes: EOMI, PERRL, nl conjunctiva, nl lids, nl sclera ENMT: nl external ears & nose, nl lips & teeth, nl nasal mucosa & septum Neck: non-tender, supple Respiratory: clear to auscultation, normal air movement Cardiovascular: nl pulses, regular rate and rhythm Gastrointestinal: nl liver, spleen, non-tender, soft Musculoskeletal: nl extremities to inspection, nl gait and stance Extremities: normal pulses Neurological: WAREHOUSE DISTRIBUTION SPECIALIST II-XII intact, nl mental status, nl speech, nl strength Skin: nl turgor, No rash or lesions Lymph: nl lymph nodes Results Result Diagram: 08/08/17 0606 08/09/17 0548 Results 24 hrs Laboratory Tests Test 08/08/17 14:57 08/09/17 05:46 08/09/17 05:47 08/09/17 05:48 Hemoglobin A1c 5.6 Prothrombin Time 13.6 Prothrombin Time Ratio 1.1 INR International Normalized Ratio 1.03 Activated Partial Thromboplast Time 35.2 H Lipase 47 Sodium Level 141 Potassium Level 4.2 Chloride Level 110 Carbon Dioxide Level 16 L Anion Gap 19 H Blood Urea Nitrogen 9 Creatinine 0.72 Glucose Level 62 #L Calcium Level 8.4 Total Bilirubin 1.4 H Direct Bilirubin 0.00 Indirect Bilirubin 1.4 H Aspartate Amino Transf (AST/SGOT) 61 H Alanine Aminotransferase (ALT/SGPT) 130 H Alkaline Phosphatase 169 H Total Protein 5.7 L Albumin 3.4 Globulin 2.30 Albumin/Globulin Ratio 1.47 Test 08/09/17 12:28 08/09/17 12:48 Bedside Glucose 54 L 133 Medications Medications Current Medications Ondansetron HCl (Zofran Inj) 4 mg Q6H PRN IV NAUSEA AND/OR VOMITING Last administered on 08/08/17 20:59; Admin Dose 4 MG; Start 08/08/17 at 04:00 Acetaminophen (Tylenol Tab) 650 mg Q6H PRN PO PAIN LEVEL 1-3 OR FEVER Last administered on 08/08/17 19:18; Admin Dose 650 MG; Start 08/08/17 at 04:00 Morphine Sulfate 2 mg 2 mg Q4H PRN IV PAIN LEVEL 7-10 Last administered on 20:59; Admin Dose 2 MG; Start 08/08/17 at 04:00 Piperacillin Sod/ Tazobactam Sod (Zosyn 3.375gm/ 50 ml (Pmx)) 50 ml @ 100 mls/ hr Q6 IVPB Last administered on 08/09/17 12:22; Admin Dose 100 MLS/HR; Start 08/08/17 at 04:00 Dextrose (D50w Syringe) 25 ml Q15M PRN IV DECREASED GLUCOSE Last administered on 08/09/17 12:23; Admin Dose 25 ML; Start 08/08/17 at 13:00 MEAGAN JORDAN MD Aug 09, 2017 14:50
--- NOTE | 2017-08-09 14:55 | CONS ---
DATE OF ADMISSION: 08/08/2017 DATE OF CONSULTATION: HISTORY OF PRESENT ILLNESS: The patient seen by me on the medical floor on 08/08/2017 at the reques t of Dr. Kenyon regarding abdominal pain. Patient went to another hospital where she was found to have abdominal pain. Because of insurance reasons, she was transferred to [facility]. The patient had abdominal pain for about 2 days prior to this admission here and the workup sh owed evidence of gallstones, dilated gallbladder, dilated common bile duct up to 13 mm and she has s ignificantly elevated liver panel with a bilirubin more than 3. No history of alcoholism. No history of GI bleeding. The patient seen by surgeons ____ requesting ERCP. No prior surgeries. REVIEW OF SYSTEM: Essentially grossly unremarkable. PHYSICAL EXAMINATION: GENERAL: The patient is a 22-year-old female who at this time is alert. VITAL SIGNS: Afebrile. CARDIOVASCULAR: Normal heart sounds. RESPIRATORY: Normal breath sounds. ABDOMEN: Showed unremarkable findings. LABORATORY WORKUP: On the day of my consultation the AST is 95, ALT 170, alkaline phosphatase 188. Lipase is not available. CLINICAL IMPRESSION: The patient presenting with history of acute cholecystitis, significantly elev ated bilirubin, dilated common bile duct, also has history of choledocholithiasis. PLAN: At this time, ERCP has been requested by surgeon and I think ERCP will be very helpful to rul e out choledocholithiasis and remove stones if any stones are found. Plan ERCP, scheduled. Once again, Dr. Kenyon, thank you for this consultation. Dictated By: SILVA HUGHES MD NC/NTS Conf#: [id number] DID#: [id number] CC: ABIGAIL KENYON MD;*EndCC*
--- NOTE | 2017-08-09 15:27 | CONS ---
Date/Time of Note Date/Time of Note DATE: 08/09/17 TIME: 15:21 Consult Date/Type/Reason Admit Date/Time Aug 08, 2017 at 01:00 Initial Consult Date 08/08/17 Type of Consultation: General surgery Reason for Consultation choledocholithiasis Ordering Provider: ABIGAIL GO Subjective pt's pain resolved. awaiting ERCP. Has some more questions about surgery. Denies f/c/n/v Objective Vital Signs Date Time Temp Pulse Resp B/P Pulse Ox O2 Delivery O2 Flow Rate FiO2 08/09/17 14:03 98.6 57 18 98/54 100 Intake and Output 08/08/17 08/08/17 08/09/17 15:00 23:00 07:00 Intake Total 100 ml 50 ml 340 ml Balance 100 ml 50 ml 340 ml Results/Medications Result Diagram: 08/08/17 0606 08/09/17 0548 Results 24 hrs Laboratory Tests Test 08/09/17 05:46 08/09/17 05:47 08/09/17 05:48 08/09/17 12:28 Prothrombin Time 13.6 Prothrombin Time Ratio 1.1 INR International Normalized Ratio 1.03 Activated Partial Thromboplast Time 35.2 H Lipase 47 Sodium Level 141 Potassium Level 4.2 Chloride Level 110 Carbon Dioxide Level 16 L Anion Gap 19 H Blood Urea Nitrogen 9 Creatinine 0.72 Glucose Level 62 #L Calcium Level 8.4 Total Bilirubin 1.4 H Direct Bilirubin 0.00 Indirect Bilirubin 1.4 H Aspartate Amino Transf (AST/SGOT) 61 H Alanine Aminotransferase (ALT/SGPT) 130 H Alkaline Phosphatase 169 H Total Protein 5.7 L Albumin 3.4 Globulin 2.30 Albumin/Globulin Ratio 1.47 Bedside Glucose 54 L Test 08/09/17 12:48 Bedside Glucose 133 Medications Current Medications Ondansetron HCl (Zofran Inj) 4 mg Q6H PRN IV NAUSEA AND/OR VOMITING Last administered on 08/08/17 20:59; Admin Dose 4 MG; Start 08/08/17 at 04:00 Acetaminophen (Tylenol Tab) 650 mg Q6H PRN PO PAIN LEVEL 1-3 OR FEVER Last administered on 08/08/17 19:18; Admin Dose 650 MG; Start 08/08/17 at 04:00 Morphine Sulfate 2 mg 2 mg Q4H PRN IV PAIN LEVEL 7-10 Last administered on 20:59; Admin Dose 2 MG; Start 08/08/17 at 04:00 Piperacillin Sod/ Tazobactam Sod (Zosyn 3.375gm/ 50 ml (Pmx)) 50 ml @ 100 mls/ hr Q6 IVPB Last administered on 08/09/17 12:22; Admin Dose 100 MLS/HR; Start 08/08/17 at 04:00 Dextrose (D50w Syringe) 25 ml Q15M PRN IV DECREASED GLUCOSE Last administered on 08/09/17 12:23; Admin Dose 25 ML; Start 08/08/17 at 13:00 Assessment/Plan Chief Complaint/Hosp Course abdominal pain Problems: (1) Choledocholithiasis Additional Assessment/Plan Pt will require laparoscopic cholecystectomy to prevent future gallstone related complications ie cholecystitis, pancreatitis, or recurrent choledocholithiasis/cholangitis. Risks and benefits as well as recooperation thoroughly explained again with RN supply chain project manager including bleeding, infection, damage to surrounding structures, conversion to open procedure, postop diarrhea/steatosis, and bile duct injury. Pt understood procedures, asked all questions and consented to proceed with surgery. Will carry out lap cholecystectomy tomorrow (after ERCP today with GI) if pt with no e/o post-ERCP pancreatitis. CRIS HO Aug 09, 2017 15:27
[2017-08-09 19:46] VITALS: BP 96/54; RESP 16
[2017-08-10] VITALS (18 sets, daily range): BP systolic 89–192; BP diastolic 50–107; PULSE 52–85; RESP 14–25
[2017-08-10] MEDS: morphine 2 MG INJ IV PRN (00:14)
[2017-08-10] MEDS: PIPER-TAZO 3.375 GM IV (PMX) 50 ML IVPB SCH ×3 (05:21→18:31)
[2017-08-10 06:48] LABS: INR 0.97
[2017-08-10 06:49] LABS: PARTIAL THROMBOPLASTIN TIME 35.4 Sec (25.0-35.0)
[2017-08-10] MEDS ORDERED: ROCURONIUM 50 MG INJ ONE (07:00)
[2017-08-10] MEDS ORDERED: PROPOFOL 200 MG INJ ONE (07:00)
[2017-08-10] MEDS ORDERED: METOCLOPRAMIDE 10 MG INJ ONE (11:19)
[2017-08-10] MEDS ORDERED: MIDAZOLAM 1 MG/ML 2 ML INJ ONE (11:19)
[2017-08-10] MEDS ORDERED: FENTAnyl 50 MCG/ML VIAL ONE (11:52)
[2017-08-10] MEDS ORDERED: NEOSTIGMINE 3 MG/3 ML SYRINGE ONE (12:01)
--- NOTE | 2017-08-10 12:11 | OPPN ---
Date/Time of Note Date/Time of Note DATE: 08/10/17 TIME: 12:09 Proc Note GI Procedure Date 08/10/17 Indication: treatment Pre-procedure Diagnosis cbd stones Post-procedure Diagnosis cbd stones Procedure Performed: ERCP Surgeon see signature line Tractor Mechanic none Anesthesia Type: general Anesthesiologist: OSCAR EDGAR MD Tourniquet Time none EBL none Transfusion required none Biopsy 1: none Grafts/Implants none Tubes/Drains none Complication(s) none Procedure Description ercp done under G A cbd stone remove cbd stent placed SILVA HUGHES MD Aug 10, 2017 12:11
[2017-08-10] MEDS ORDERED: ONDANSETRON 4 MG INJ ONE (12:13)
--- NOTE | 2017-08-10 15:07 | PN ---
Date/Time of Note Date/Time of Note DATE: 08/10/17 TIME: 15:06 Assessment/Plan VTE Prophylaxis VTE Prophylaxis Intervention: heparin Lines/Catheters IV Catheter Type (from Nrsg): Peripheral IV Urinary Cath still in place: No Assessment/Plan Chief Complaint/Hosp Course 22 yo female with cholecystitis - ERCP today - Continue abx until resolved - Pain control, IVF - Eventual cholecystectomy Problems: Subjective 24 Hr Interval Summary Free Text/Dictation ERCP performed today, patient was not in room to be evaluated Exam/Review of Systems Vital Signs Vitals Vital Signs Date Time Temp Pulse Resp B/P Pulse Ox O2 Delivery O2 Flow Rate FiO2 08/10/17 14:34 97.9 72 18 111/53 100 08/10/17 13:09 Room Air Intake and Output 08/09/17 08/09/17 08/10/17 15:00 23:00 07:00 Intake Total 50 ml 50 ml 220 ml Balance 50 ml 50 ml 220 ml Results Result Diagram: 08/08/17 0606 08/09/17 0548 Results 24 hrs Laboratory Tests Test 08/10/17 05:34 Prothrombin Time 13.0 Prothrombin Time Ratio 1.0 INR International Normalized Ratio 0.97 Activated Partial Thromboplast Time 35.4 H Lipase 51 Medications Medications Current Medications Ondansetron HCl (Zofran Inj) 4 mg Q6H PRN IV NAUSEA AND/OR VOMITING Last administered on 08/08/17 20:59; Admin Dose 4 MG; Start 08/08/17 at 04:00 Acetaminophen (Tylenol Tab) 650 mg Q6H PRN PO PAIN LEVEL 1-3 OR FEVER Last administered on 08/08/17 19:18; Admin Dose 650 MG; Start 08/08/17 at 04:00 Morphine Sulfate 2 mg 2 mg Q4H PRN IV PAIN LEVEL 7-10 Last administered on 00:14; Admin Dose 2 MG; Start 08/08/17 at 04:00 Piperacillin Sod/ Tazobactam Sod (Zosyn 3.375gm/ 50 ml (Pmx)) 50 ml @ 100 mls/ hr Q6 IVPB Last administered on 08/10/17 05:21; Admin Dose 100 MLS/HR; Start 08/08/17 at 04:00 Dextrose (D50w Syringe) 25 ml Q15M PRN IV DECREASED GLUCOSE Last administered on 08/09/17t 12:23; Admin Dose 25 ML; Start 08/08/17 at 13:00 MEAGAN JORDAN MD Aug 10, 2017 15:07
--- NOTE | 2017-08-10 15:20 | CONS ---
Date/Time of Note Date/Time of Note DATE: 08/10/17 TIME: 15:18 Consult Date/Type/Reason Admit Date/Time Aug 08, 2017 at 01:00 Initial Consult Date 08/08/17 Type of Consultation: General surgery Reason for Consultation choledocholithiasis Ordering Provider: ABIGAIL GO Subjective had ERCP today, large stone retracted, stent placed. denies f/c/n/v Objective Vital Signs Date Time Temp Pulse Resp B/P Pulse Ox O2 Delivery O2 Flow Rate FiO2 08/10/17 14:34 97.9 72 18 111/53 100 08/10/17 13:09 Room Air Intake and Output 08/09/17 08/09/17 08/10/17 15:00 23:00 07:00 Intake Total 50 ml 50 ml 220 ml Balance 50 ml 50 ml 220 ml Exam abd soft nt nd sclerae anicteric bilat Results/Medications Result Diagram: 08/08/17 0606 08/09/17 0548 Results 24 hrs Laboratory Tests Test 08/10/17 05:34 Prothrombin Time 13.0 Prothrombin Time Ratio 1.0 INR International Normalized Ratio 0.97 Activated Partial Thromboplast Time 35.4 H Lipase 51 Medications Current Medications Ondansetron HCl (Zofran Inj) 4 mg Q6H PRN IV NAUSEA AND/OR VOMITING Last administered on 08/08/17 20:59; Admin Dose 4 MG; Start 08/08/17 at 04:00 Acetaminophen (Tylenol Tab) 650 mg Q6H PRN PO PAIN LEVEL 1-3 OR FEVER Last administered on 08/08/17 19:18; Admin Dose 650 MG; Start 08/08/17 at 04:00 Morphine Sulfate 2 mg 2 mg Q4H PRN IV PAIN LEVEL 7-10 Last administered on 00:14; Admin Dose 2 MG; Start 08/08/17 at 04:00 Piperacillin Sod/ Tazobactam Sod (Zosyn 3.375gm/ 50 ml (Pmx)) 50 ml @ 100 mls/ hr Q6 IVPB Last administered on 08/10/17 05:21; Admin Dose 100 MLS/HR; Start 08/08/17 at 04:00 Dextrose (D50w Syringe) 25 ml Q15M PRN IV DECREASED GLUCOSE Last administered on 08/09/17 12:23; Admin Dose 25 ML; Start 08/08/17 at 13:00 Assessment/Plan Chief Complaint/Hosp Course abdominal pain Problems: Additional Assessment/Plan to OR tomorrow for lap cholecystectomy Clear liquids ok, NPO p CRIS GRACIA Aug 10, 2017 15:20
[2017-08-10] MEDS: ACETAMINOPHEN 325 MG TAB PO PRN (20:48)
[2017-08-11] VITALS (27 sets, daily range): BP systolic 94–130; BP diastolic 52–70; PULSE 66–100; RESP 14–39
[2017-08-11] MEDS: PIPER-TAZO 3.375 GM IV (PMX) 50 ML IVPB SCH ×4 (00:36→18:43)
[2017-08-11] MEDS: DEXTROSE 5%-0.45% NACL 1,000 ML IV SCH ×2 (00:36→12:18)
[2017-08-11 06:03] LABS: HAAIG REFLEX REFLEX FILED
[2017-08-11 06:08] LABS: BASOPHILS % 0.5 % (0.0-2.0); EOSINOPHILS # 0.2 10^3/ul (0.0-0.5); EOSINOPHILS % 2.9 % (0.0-7.0); HEMOGLOBIN 12.9 g/dl (12.0-16.0); LYMPHOCYTES # 3.2 10^3/ul (0.8-2.9); MEAN CORPUSCULAR HEMOGLOBIN 26.8 pg (29.0-33.0); MEAN CORPUSCULAR HGB CONC 33.1 g/dl (32.0-37.0); MEAN CORPUSCULAR VOLUME 81.1 fl (82.0-101.0); MEAN PLATELET VOLUME 9.7 fl (7.4-10.4); MONOCYTE # 0.6 10^3/ul (0.3-0.9); MONOCYTES % 7.8 % (0.0-11.0); NEUTROPHIL # 3.9 10^3/ul (1.6-7.5); NEUTROPHILS % 48.3 % (39.0-77.0); PLATELET COUNT 281 10^3/UL (140-415); RED BLOOD COUNT 4.81 10^6/ul (4.20-5.40); RED CELL DISTRIBUTION WIDTH 13.2 % (11.5-14.5); WHITE BLOOD COUNT 8.1 10^3/ul (4.8-10.8)
[2017-08-11 06:25] LABS: INR 1.03; PROTIME 13.6 Sec (11.9-14.9); PT RATIO 1.1
[2017-08-11 06:35] LABS: ALANINE AMINOTRANSFERASE 132 IU/L (13-69); ALBUMIN 4.7 g/dl (3.3-4.9); ALBUMIN/GLOBULIN RATIO 1.51; ALKALINE PHOSPHATASE 282 IU/L (42-121); ANION GAP 23 (8-16); ASPARTATE AMINO TRANSFERASE 40 IU/L (15-46); BILIRUBIN,INDIRECT 1.6 mg/dl (0-1.1); BILIRUBIN,TOTAL 1.6 mg/dl (0.2-1.3); BLOOD UREA NITROGEN 5 mg/dl (7-20); CARBON DIOXIDE 16 mmol/L (21-31); CHLORIDE 105 mmol/L (97-110); CREATININE 0.68 mg/dl (0.44-1.00); GLUCOSE 95 mg/dl (70-220); POTASSIUM 3.7 mmol/L (3.5-5.1); SODIUM 140 mmol/L (135-144); TOTAL PROTEIN 7.8 g/dl (6.1-8.1)
[2017-08-11] MEDS ORDERED: LIDOCAINE 1% (MPF) 30 ML INJ ONE (07:08)
[2017-08-11] MEDS ORDERED: BUPIVACAINE 0.25%/EPI (SDV) 30 ML INJ ONE (07:08)
[2017-08-11 07:23] LABS: HEPATITIS B CORE ANTIBODY NEGATIVE (NEGATIVE)
[2017-08-11] MEDS ORDERED: MIDAZOLAM 1 MG/ML 2 ML INJ ONE (07:39)
[2017-08-11] MEDS ORDERED: METOCLOPRAMIDE 10 MG INJ ONE (07:40)
[2017-08-11] MEDS ORDERED: PROPOFOL 20 ML ONE (07:41)
[2017-08-11] MEDS ORDERED: NEOSTIGMINE 3 MG/3 ML SYRINGE ONE (07:41)
[2017-08-11] MEDS ORDERED: GLYCOPYRROLATE 0.4 MG INJ ONE (07:41)
[2017-08-11] MEDS ORDERED: ROCURONIUM 50 MG INJ ONE (07:41)
[2017-08-11] MEDS ORDERED: ONDANSETRON 4 MG INJ ONE (07:42)
[2017-08-11] MEDS ORDERED: ROPIVACAINE 0.5 % 30 ML VIAL ONE (07:42)
--- NOTE | 2017-08-11 07:45 | GILP ---
DATE OF PROCEDURE: NAME OF PROCEDURE: ERCP, sphincterotomy, removal of common bile duct stone and placement of a CBD s tent. PREOPERATIVE DIAGNOSIS: Patient presenting with history of obstructive jaundice, cholelithiasis not ed, common duct stone needs to be ruled out, and hence, ERCP was performed. POSTOPERATIVE DIAGNOSES: Common bile duct stone noted which was removed. Common bile duct stent wa s placed. DESCRIPTION OF PROCEDURE: After the informed written consent was obtained, the patient was intubate d by anesthesiologist, Dr. Yap. While the patient was in prone position, Pentax video side-v iewing duodenoscope was inserted into the oropharynx, then into the esophagus, subsequently into the stomach and then into the duodenum. The ampulla was located in normal location with normal morphol ogy. At this time, by using the Dreamtome, cannulation of the common bile duct was performed. Comm on bile duct was injected with the contrast. Filling defect noted in the lower part of the common b ile duct. There is dilatation of the common bile duct noted up to 10 to 11 mm in diameter. At this time, sphincterotomy was performed by using the cutting wire of the Dreamtome, about 8 mm cut was m man of the ampulla. Dreamtome was removed. Stone extraction balloon was inserted into the common h epatic duct and the stone was extracted from the common bile duct measuring about 7 to [address]. At this time, multiple sweeping techniques were performed to remove all the sludge and black t hick bile from the common bile duct. At this time, a 10 x 7 Peck type of endobiliary prosthesi s was inserted into the bile duct across the ampulla into the duodenum. Photographs were obtained a nd the procedure was terminated. PLAN: Recommend to proceed with laparoscopic cholecystectomy. Dictated By: SILVA MOLINA/FADIA Conf#: [id number] DID#: [id number] CC: ABIGAIL GO MD;*EndCC*
[2017-08-11] MEDS ORDERED: PHENYLephrine (100 MCG/ML) 5ML SYG ONE (07:51)
--- NOTE | 2017-08-11 07:54 | HPN ---
Date/Time of Note Date/Time of Note DATE: 08/11/17 TIME: 07:54 Interval H&P Admission Note pt now s/p ERCP, stone extraction, stent placement CRIS HO Aug 11, 2017 07:54
[2017-08-11] MEDS ORDERED: CEFAZOLIN 1 GM INJ ONE (08:07)
[2017-08-11] MEDS ORDERED: DIPHENHYDRAMINE 50 MG INJ IV PRN (08:30)
[2017-08-11] MEDS ORDERED: HYDROmorphONE (0.2 MG/ML) 10ML SYG IV PRN ×2 (08:30)
[2017-08-11] MEDS ORDERED: ONDANSETRON 4 MG INJ IV PRN (08:30)
[2017-08-11] MEDS ORDERED: MEPERIDINE 25 MG INJ IV PRN (08:30)
[2017-08-11] MEDS ORDERED: KETOROLAC 30 MG INJ ONE (08:33)
[2017-08-11] MEDS ORDERED: HYDROmorphONE 2 MG/ML SYG ONE (09:31)
--- NOTE | 2017-08-11 10:02 | OPR ---
Date/Time of Note Date/Time of Note DATE: 08/11/17 TIME: 09:50 Operative Report Free Text/Dictation CRIS HO MD FACS Procedure Date: Aug 11, 2017 Preoperative Diagnosis choledocholithiasis Postoperative Diagnosis choledocholithiasis Operation/Procedure Performed laparoscopic cholecystectomy Surgeon Cris Ho MD Fruit Packer Face And Fill none Anesthesia Type: general Estimated Blood Loss: 0 - 10 ml's Transfusion none Specimen gallbladder sent to pathology Grafts/Implants none Complications none Pt Condition Post Procedure: stable Disposition: PACU Indications Patient presented with recurrent epigastric and RUQ pain; workup revealed choledocholithiasis; she underwent ERCP with stone extraction yesterday. Per guidelines, to prevent future gallstone related complications such as cholangitis, pancreatitis, and cholecystitis; she warrants a cholecystectomy prior to discharge. Risks and benefits including bleeding, infection, damage to surrounding structures, bile duct injury, need for another procedure, conversion to open procedure, and recooperation time were explained with gum scoring machine operator present. Pt consented to the procedure. Procedure Description Patient laid supine on the operating room table. The abdomen was prepped and draped, abx given, Venodyne boots placed, and time out carried out. A 5 mm incision was made at the midclavicular region of the RUQ 2 cm below the subcostal margin, Veress needle was inserted until three clicks were heard and the abdomen insufflated to 15 mmHg. The Optiview trocar was used to enter the abdomen with a 5 mm 30 degree scope. The area of entry was examined and confirmed to have no injury. The periumbilical 5 mm port was placed at the umbilicus and another 5 mm port was placed at the RLQ for retraction. The camera was moved to the periumbilical region and a 12 mm port was placed at the subxiphoid region. The gallbladder was retracted superiorly and the perioneal adhesions to the gallbladder were dissected off laterally to medially. The cystic duct was identified. It was noted to be friable and as I disected it, I noted it developed a defect and some small stones fell out. The cystic duct was nonetheless fully skeletonized and then the cystic artery. It was noted that only two structures were entering the gallbladder and this was confirmed from viewpoints both medially and laterally and the cystic plate was visible through the triangle of Calot. The cystic duct was noted to be enlarged. It was clipped just distal to the infundibulum where the defect had been created and the clips were used to ligate the duct just below and above it and it was then transected. The cystic artery was similarly skeletonized and cliipped twice proximally and once distally and it was transected. The cautery was used to then dissect the gallbladder off the gallbladder fossa of the liver. Hemostasis was carried out as necessary with cautery along the way. The gallbladder was placed into an Endocatch bag and retrieved. The clips were inspected and noted to be intact; the cystic duct stump was noted to have no bile leaking through. The gallbladder fossa was inspected and it was confirmed to be hemostatic. Some small stones were noted and they were scooped up with the large scoop laparoscopic forceps. The cystic plate and the surrounding areas were irrigated and confirmed to be hemostatic again. All instrument, sponge, and needle counts were confirmed with RN and tech to be correct. The Endoclose transfascial closure device was then used to close the 12 mm port and the skin incisions were closed with buried interrupted 4-0 Monocryl and covered with Dermabond. The patient tolerated the procedure well and was dispositioned to the PACU in stable condition. CRIS HO Aug 11, 2017 10:02
[2017-08-11] MEDS: HYDROmorphONE (0.2 MG/ML) 10ML SYG IV PRN ×4 (10:26→10:48)
--- NOTE | 2017-08-11 13:43 | PN ---
Date/Time of Note Date/Time of Note DATE: 08/11/17 TIME: 13:42 Assessment/Plan VTE Prophylaxis VTE Prophylaxis Intervention: heparin Lines/Catheters IV Catheter Type (from Nrs): Peripheral IV Urinary Cath still in place: No Assessment/Plan Chief Complaint/Hosp Course 22 yo female with cholecystitis - ERCP done yesterday with stone removed, lap fabrice done today - Continue abx today, can dc tomorrow - Pain control, IVF Can be discharged in next 1-2 days Problems: Subjective 24 Hr Interval Summary Free Text/Dictation ERCP performed yesterday Lap fabrice done today Exam/Review of Systems Vital Signs Vitals Vital Signs Date Time Temp Pulse Resp B/P Pulse Ox O2 Delivery O2 Flow Rate FiO2 08/11/17 11:34 98.0 88 16 108/58 99 08/11/17 11:18 Room Air 08/11/17 09:38 8.0 Intake and Output 08/10/17 08/10/17 08/11/17 15:00 23:00 07:00 Intake Total 410 ml 500 ml Balance 410 ml 500 ml Exam Constitutional: alert, oriented, well developed Psych: nl mood/affect, no complaints Head: atraumatic, normocephalic Eyes: EOMI, PERRL, nl conjunctiva, nl lids, nl sclera ENMT: nl external ears & nose, nl lips & teeth, nl nasal mucosa & septum Neck: non-tender, supple Respiratory: clear to auscultation, normal air movement Cardiovascular: nl pulses, regular rate and rhythm Gastrointestinal: nl liver, spleen, non-tender, soft Musculoskeletal: nl extremities to inspection, nl gait and stance Extremities: normal pulses Neurological: RESOLUTION ANALYST II-XII intact, nl mental status, nl speech, nl strength Skin: nl turgor, No rash or lesions Lymph: nl lymph nodes Results Result Diagram: 08/11/17 0544 08/11/17 0545 Results 24 hrs Laboratory Tests Test 08/11/17 05:44 08/11/17 05:45 08/11/17 06:09 White Blood Count 8.1 Red Blood Count 4.81 Hemoglobin 12.9 Hematocrit 39.0 Mean Corpuscular Volume 81.1 L Mean Corpuscular Hemoglobin 26.8 L Mean Corpuscular Hemoglobin Concent 33.1 Red Cell Distribution Width 13.2 Platelet Count 281 # Mean Platelet Volume 9.7 Neutrophils % 48.3 Lymphocytes % 40.0 Monocytes % 7.8 Eosinophils % 2.9 Basophils % 0.5 Nucleated Red Blood Cells % 0.0 Neutrophils # 3.9 Lymphocytes # 3.2 H Monocytes # 0.6 Eosinophils # 0.2 Basophils # 0.0 Nucleated Red Blood Cells # 0.0 Prothrombin Time 13.6 Prothrombin Time Ratio 1.1 INR International Normalized Ratio 1.03 Activated Partial Thromboplast Time 36.0 H Lipase 84 Sodium Level 140 Potassium Level 3.7 Chloride Level 105 Carbon Dioxide Level 16 L Anion Gap 23 H Blood Urea Nitrogen 5 L Creatinine 0.68 Glucose Level 95 Calcium Level 10.0 Total Bilirubin 1.6 H Direct Bilirubin 0.00 Indirect Bilirubin 1.6 H Aspartate Amino Transf (AST/SGOT) 40 Alanine Aminotransferase (ALT/SGPT) 132 H Alkaline Phosphatase 282 #H Total Protein 7.8 # Albumin 4.7 # Globulin 3.10 Albumin/Globulin Ratio 1.51 Hepatitis B Surface Antigen NEGATIVE Hepatitis B Core Total Antibody NEGATIVE Hepatitis C Antibody NEGATIVE Bedside Glucose 94 Medications Medications Current Medications Ondansetron HCl (Zofran Inj) 4 mg Q6H PRN IV NAUSEA AND/OR VOMITING Last administered on 08/08/17 20:59; Admin Dose 4 MG; Start 08/08/17 at 04:00 Acetaminophen (Tylenol Tab) 650 mg Q6H PRN PO PAIN LEVEL 1-3 OR FEVER Last administered on 08/10/17 20:48; Admin Dose 650 MG; Start 08/08/17 at 04:00 Morphine Sulfate 2 mg 2 mg Q4H PRN IV PAIN LEVEL 7-10 Last administered on 00:14; Admin Dose 2 MG; Start 08/08/17 at 04:00 Piperacillin Sod/ Tazobactam Sod (Zosyn 3.375gm/ 50 ml (Pmx)) 50 ml @ 100 mls/ hr Q6 IVPB Last administered on 08/11/17 12:20; Admin Dose 100 MLS/HR; Start 08/08/17 at 04:00 Dextrose 25 ml 25 ml Q15M PRN IV DECREASED GLUCOSE Last administered on 12:23; Admin Dose 25 ML; Start 08/08/17 at 13:00 Dextrose/Sodium Chloride (D5-1/2ns) 1,000 ml @ 80 mls/hr [id number] IV Last administered on 08/11/17t 00:36; Admin Dose 80 MLS/HR; Start 08/11/17 at 00:00 MEAGAN JORDAN MD Aug 11, 2017 13:43
[2017-08-11] MEDS: morphine 2 MG INJ IV PRN ×2 (18:48→22:31)
[2017-08-12] MEDS: PIPER-TAZO 3.375 GM IV (PMX) 50 ML IVPB SCH ×3 (00:23→12:34)
[2017-08-12] MEDS ORDERED: KETOROLAC 30 MG INJ IV PRN (01:00)
[2017-08-12] MEDS ORDERED: HYDROCODONE/APAP (5/325) TAB PO PRN (01:00)
[2017-08-12] MEDS: DEXTROSE 5%-0.45% NACL 1,000 ML IV SCH ×2 (01:00→01:47)
[2017-08-12 02:24] VITALS: BP 102/58; RESP 18
[2017-08-12 06:37] LABS: INR 1.09; PROTIME 14.2 Sec (11.9-14.9); PT RATIO 1.1
[2017-08-12 06:38] LABS: PARTIAL THROMBOPLASTIN TIME 35.8 Sec (25.0-35.0)
[2017-08-12 07:57] VITALS: BP 106/62; RESP 18
--- NOTE | 2017-08-12 13:34 | CONS ---
Date/Time of Note Date/Time of Note DATE: 08/12/17 TIME: 13:33 Consult Date/Type/Reason Admit Date/Time Aug 08, 2017 at 01:00 Initial Consult Date 08/08/17 Type of Consultation: General surgery Ordering Provider: ABIGAIL GO Subjective POD 1 s./p lap choly ; no complaints. no f/c/n/v, pain well controlled Objective Vital Signs Date Time Temp Pulse Resp B/P Pulse Ox O2 Delivery O2 Flow Rate FiO2 08/12/17 07:57 98.1 64 18 106/62 96 08/11/17 11:18 Room Air 08/11/17 09:38 8.0 Intake and Output 08/11/17 08/11/17 08/12/17 15:00 23:00 07:00 Intake Total 1050 ml 750 ml 880 ml Output Total 5 ml Balance 1045 ml 750 ml 880 ml Exam abd soft nd with incisions c/d/i Results/Medications Result Diagram: 08/11/17 0544 08/11/17 0545 Results 24 hrs Laboratory Tests Test 08/12/17 05:15 Prothrombin Time 14.2 Prothrombin Time Ratio 1.1 INR International Normalized Ratio 1.09 Activated Partial Thromboplast Time 35.8 H Medications Current Medications Ondansetron HCl (Zofran Inj) 4 mg Q6H PRN IV NAUSEA AND/OR VOMITING Last administered on 08/08/17 20:59; Admin Dose 4 MG; Start 08/08/17 at 04:00 Acetaminophen (Tylenol Tab) 650 mg Q6H PRN PO PAIN LEVEL 1-3 OR FEVER Last administered on 08/10/17 20:48; Admin Dose 650 MG; Start 08/08/17 at 04:00 Morphine Sulfate 2 mg 2 mg Q4H PRN IV PAIN LEVEL 7-10 Last administered on 22:31; Admin Dose 2 MG; Start 08/08/17 at 04:00 Piperacillin Sod/ Tazobactam Sod (Zosyn 3.375gm/ 50 ml (Pmx)) 50 ml @ 100 mls/ hr Q6 IVPB Last administered on 08/12/17 12:34; Admin Dose 100 MLS/HR; Start 08/08/17 at 04:00 Dextrose (D50w Syringe) 25 ml Q15M PRN IV DECREASED GLUCOSE Last administered on 08/09/17 12:23; Admin Dose 25 ML; Start 08/08/17 at 13:00 Acetaminophen/ Hydrocodone Bitart (Cactus (5/325)) 1 tab Q6H PRN PO PAIN Last administered on 08/12/17 10:18; Admin Dose 1 TAB; Start 08/12/17 at 01:00 Ketorolac Tromethamine (Toradol) 30 mg Q6H PRN IV PAIN Last administered on 00:56; Admin Dose 30 MG; Start 08/12/17 at 01:00; Stop 08/15/17 at 00: 59 Assessment/Plan Chief Complaint/Hosp Course abdominal pain Problems: Additional Assessment/Plan OK to DC home; follow up in two weeks at my office. CRIS HO Aug 12, 2017 13:34
[2017-08-12 13:39] VITALS: BP 104/66; RESP 16
--- NOTE | 2017-08-12 14:36 | PDOCDIS ---
Discharge Instructions CONDITION Patient Condition: Good HOME CARE INSTRUCTIONS: Diet Instructions: Regular ACTIVITY: Activity Restrictions: Slowly Increase Activity FOLLOW UP/APPOINTMENTS Follow-up Plan Follow-up with Dr. Jose Guadalupe Fish in 2 weeks OSIEL ROMAN Aug 12, 2017 14:36
[2017-08-12] MEDS ORDERED: HYDR-906 PO (14:37)
--- NOTE | 2017-08-12 14:43 | RADRPT ---
PROCEDURE: Intraoperative imaging for ERCP with fluoroscopy. CLINICAL INDICATION: Right upper quadrant pain. Intraoperative. TECHNIQUE: 10 images of the right upper quadrant of the abdomen were obtained in the operating denisse m with an image intensifier. No radiologist was in attendance. Fluoroscopy time is 58 seconds. COMPARISON: No prior study is available for comparison. FINDINGS: Images demonstrate the endoscope in position. Contrast was injected into the common bile duct. The c ommon bile duct is diffusely dilated. Filling defects are present consistent with stones or gas bubb les. A common bile duct plastic stent was placed. The pancreatic duct was not injected. IMPRESSION: 1. ERCP as described above. RPTAT: QQ .Glenroy Delacruz MD, Date Time Electronically viewed and signed by .Glenroy Delacruz MD, on 08/12/2017 14:43 .R/
--- NOTE | 2017-08-12 14:44 | DS ---
Date/Time of Note Date/Time of Note DATE: 08/12/17 TIME: 14:37 Discharge Summary Admission/Discharge Info Admit Date/Time Aug 08, 2017 at 01:00 Discharge Date/Time August 12, 2017 Discharge Diagnosis 1. Choledocholithiasis status post ERCP and lap fabrice DC with [place] Follow-up with GI and surgery Patient Condition: Good Hospital Course Patient is a 22 year old female with no medical history who presented with abdominal pain x 4 days. Patient was diagnosed with choledocholithiasis, patient underwent ERCP with stone extraction and stent placement. Patient then had a lap cholecystectomy, patient is postop day 1 is clear for DC per surgery. On the day of discharge patient vitals, labs and physical exam are stable she has no acute complaints and questions are answered. Home Meds Active Scripts Hydrocodone/Acetaminophen ([place] 5-325 Tablet) 1 Each Tablet, 1 EACH PO Q4 Y for PAIN, #30 TAB Prov:OSIEL ROMAN 08/12/17 Follow-up Plan Follow-up with Dr. Jose Guadalupe Fish of surgery and of GI in 2 weeks Primary Care Provider [facility] Time spent on discharge: > 30 minutes OSIEL ROMAN Aug 12, 2017 14:43
== END 2017-08-12 16:50 | disposition home or self-care (01) | DRG 419 ==
LOC: TEL 01:00 → MS2 13:53
PROVIDERS: ADMIT Family Medicine; ATTEND Family Medicine
PROC: 0FC98ZZ Extirpation of Matter from Common Bile Duct, Via Natural or Artificial Opening Endoscopic (ICD-10-PCS; 2017-08-10 11:00)
PROC: 0F798DZ Dilation of Common Bile Duct with Intraluminal Device, Via Natural or Artificial Opening Endoscopic (ICD-10-PCS; 2017-08-10 11:00)
PROC: 0FT44ZZ Resection of Gallbladder, Percutaneous Endoscopic Approach (ICD-10-PCS; principal; 2017-08-11 07:30)
DX: K80.50 Calculus of bile duct without cholangitis or cholecystitis without obstruction (principal); Z87.74 Personal history of (corrected) congenital malformations of heart and circulatory system; K83.8 Other specified diseases of biliary tract
CPT/HCPCS: 74330; 80053; 80061; 82962; 83036; 83690; 83735; 84443; 84703; 85025; 85610; 85730; 86704; 86709; 86803; 87081; 87340; 88304; C2617; J0690; J1170; J1815; J1885; J2250; J2270; J2370; J2405; J2543; J2710; J2765; J2795; J3010; J7030; J7042

== ENCOUNTER 2017-08-16 11:12 | Outpatient (CLI) | END 2017-08-16 16:16 | disposition home or self-care (01) ==

== ENCOUNTER 2017-12-23 17:17 | Emergency (ER) | END 2017-12-23 20:22 | disposition home or self-care (01) ==

== ENCOUNTER 2018-03-06 11:47 | Day surgery (SDC) | END 2018-03-06 17:26 | disposition home or self-care (01) ==